=== PATIENT | male | born 1950 | race Caucasian/White ===

== ENCOUNTER 2022-04-07 11:50 | Emergency (ER) | payer MEDICARE, BC ==
[2022-04-07] MEDS ORDERED: Sodium Chloride 0.9% 10 ML Syringe FLUSH PRN (13:23)
[2022-04-07] MEDS ORDERED: Sodium Chloride 0.9% 500 ML IV ONE ×2 (13:47→16:19)
[2022-04-07] MEDS ORDERED: Insulin Lispro 100 Units/ML 3 ML Vial SUBCUT ONE ×2 (14:56→14:58)
[2022-04-07] MEDS ORDERED: Glucagon,Human Recombinant 1 MG Vial IM PRN ×2 (14:56→14:58)
[2022-04-07] MEDS ORDERED: 50% Dextrose in Water 50 ML Syringe IVPUSH PRN ×2 (14:56→14:58)
[2022-04-07] MEDS ORDERED: Sodium Chloride 0.9% 1,000 ML IV SCH (17:00)
== END 2022-04-07 18:20 ==
LOC: JP.ED 11:50
DX: I25.10 Atherosclerotic heart disease of native coronary artery without angina pectoris (principal); U09.9 Post COVID-19 condition, unspecified; N17.9 Acute kidney failure, unspecified; E10.10 Type 1 diabetes mellitus with ketoacidosis without coma; E10.22 Type 1 diabetes mellitus with diabetic chronic kidney disease; E10.65 Type 1 diabetes mellitus with hyperglycemia; I12.9 Hypertensive chronic kidney disease with stage 1 through stage 4 chronic kidney disease, or unspecified chronic kidney disease; N18.30 Chronic kidney disease, stage 3 unspecified; D63.1 Anemia in chronic kidney disease; E87.5 Hyperkalemia; Z94.0 Kidney transplant status; Z88.0 Allergy status to penicillin; Z88.8 Allergy status to other drugs, medicaments and biological substances; Z79.01 Long term (current) use of anticoagulants; Z79.899 Other long term (current) drug therapy; Z95.1 Presence of aortocoronary bypass graft
CPT/HCPCS: 36415; 36600; 71045; 82009; 82803; 82947; 83735; 83880; 84100; 85610; 87040; 96360; 96361; 99285; J1815; J3490; J7030; J7040